=== PATIENT | female | born 1990 | race African-American/Black ===

== ENCOUNTER 2017-06-16 17:23 | Emergency (ER) | payer MEDICAID ==
[~2017-06-16] VITALS: Ht 160 cm; Wt 77.0 kg
[2017-06-16 17:25] VITALS: BP 143/87
== END 2017-06-16 20:00 | disposition left against medical advice (07) ==
LOC: ER 17:32
DX: R10.9 Unspecified abdominal pain (principal); Z53.21 Procedure and treatment not carried out due to patient leaving prior to being seen by health care provider

== ENCOUNTER 2022-06-29 11:30 | Inpatient (IN) | payer MEDICAID, OTHER ==
[~2022-06-29] VITALS: Ht 162.6 cm; Wt 126.1 kg
[2022-06-29 13:12] LABS: HEMATOCRIT. 31.8 % (36.0-48.0); HEMOGLOBIN. 10.3 g/dL (12.0-16.0); MEAN CORPUSCULAR VOLUME 83.4 fL (81.0-99.0); MEAN PLATELET VOLUME 9.8 fl (7.4-10.4); PLATELET 222 x1000/uL (130-400); RED BLOOD CELL COUNT 3.82 mill/uL (4.2-5.4)
[2022-06-29 13:23] LABS: CLARITY URINE TURBID (CLEAR); COLOR URINE YELLOW (YELLOW); KETONES URINE NEGATIVE (NEGATIVE); LEUKOCYTE ESTERASE URINE 3+ (NEGATIVE); NITRITE URINE NEGATIVE (NEGATIVE); OCCULT BLOOD URINE 2+ (NEGATIVE); PH URINE 5.5 (4.5-8.0); PROTEIN URINE 1+ (NEGATIVE); SPECIFIC GRAVITY URINE 1.011 (1.005-1.030)
[2022-06-29 13:26] LABS: CHLORIDE 96 mEq/L (98-107)
[2022-06-29 13:37] LABS: ETHANOL BLOOD < 10 mg/dL
[2022-06-29 13:48] LABS: *AMPHETAMINES SCREEN URINE NEGATIVE (NEGATIVE); *BARBITURATES SCREEN URINE NEGATIVE (NEGATIVE); *BENZODIAZEPINES SCREEN URINE NEGATIVE (NEGATIVE); *COCAINE SCREEN URINE NEGATIVE (NEGATIVE); CANNABINOID URINE SCREEN NEGATIVE (NEGATIVE); METHADONE URINE SCREEN NEGATIVE (NEGATIVE); PHENCYCLIDINE URINE SCREEN NEGATIVE (NEGATIVE)
[2022-06-29 13:50] LABS: OPIATES URINE SCREEN PRESUMTIVE POSITIVE (NEGATIVE)
[2022-06-29 13:55] LABS: HCG SCREEN POSITIVE
[2022-06-29 14:12] LABS: NUCLEATED RED BLOOD CELLS 9 /100 WBC
[2022-06-29 14:13] LABS: PLATELET ESTIMATE NORMAL
[2022-06-29] MEDS ORDERED: ACETAMINOPHEN 325MG TABLET PO ONE (14:15)
[2022-06-29] MEDS ORDERED: PIPERACILLIN/TAZ 3.375G PREMIX 50 ML IV ONE (15:00)
[2022-06-29] MEDS ORDERED: VANCOMYCIN 1G PREMIX 200 ML IV ONE (15:00)
[2022-06-29] MEDS ORDERED: MORPHINE SULFATE 4 MG/ML CPJ (NOT FOR IM USE) IV NR (17:15)
[2022-06-29] MEDS ORDERED: PIPERACILLIN/TAZ 3.375G PREMIX 50 ML IV STA (22:55)
[2022-06-29] MEDS ORDERED: VANCOMYCIN 1G PREMIX 200 ML IV STA (22:55)
[2022-06-29] MEDS ORDERED: AZITHROMYCIN 500 MG TABLET PO NR (23:15)
[2022-06-29] MEDS ORDERED: LACTOBACILLUS GG CAPSULE PO SCH (23:15)
[2022-06-30] MEDS ORDERED: OXYTOCIN 30 UNITS/500ML NS PMX 500 ML IV SCH ×2 (00:15→07:00)
[2022-06-30] MEDS ORDERED: LACTATED RINGERS 1,000 ML IV SCH (00:15)
[2022-06-30] MEDS ORDERED: MISOPROSTOL 100MCG TABLET VG SCH (00:15)
[2022-06-30] MEDS ORDERED: HYDRALAZINE 20MG/ML VIAL IV PRN ×3 (00:30)
[2022-06-30] MEDS: BUTORPHANOL TARTRATE 2 MG/ML VIAL IV PRN ×2 (01:36→05:20)
[2022-06-30 03:08] LABS: CHLORIDE 96 mEq/L (98-107)
[2022-06-30] MEDS ORDERED: LABETALOL HCL 5MG/ML VIAL 20ML IV PRN ×3 (03:45)
[2022-06-30 03:58] LABS: BASOPHILS % 0.1 % (0.0-2.0); EOSINOPHILS % 7.5 % (0.0-5.0); HEMATOCRIT. 30.4 % (36.0-48.0); LYMPHOCYTES % 11.7 % (20.0-50.0); MEAN CORPUSCULAR HEMOGLOBIN 27.4 pg (28.0-32.0); MEAN CORPUSCULAR VOLUME 83.6 fL (81.0-99.0); MEAN PLATELET VOLUME 10.2 fl (7.4-10.4); MONOCYTES % 7.1 % (2.0-8.0); NEUTROPHILS % 73.6 % (40.0-76.0); PLATELET 180 x1000/uL (130-400); RED BLOOD CELL COUNT 3.64 mill/uL (4.2-5.4); RED CELL DISTRIBUTION WIDTH 16.2 % (11.6-14.6)
[2022-06-30 05:59] LABS: D-DIMER 19.07 mg/L FEU (<0.50); PARTIAL THROMBOPLASTIN TIME 33.8 sec (23.4-31.0); PROTHROMBIN TIME 10.4 sec (9.6-11.0)
[2022-06-30] MEDS ORDERED: RHO(D) IMMUNE GLOBULIN 300 MCG/SYR IM PRN (07:00)
[2022-06-30] MEDS ORDERED: IBUPROFEN 400MG TABLET PO PRN (07:00)
[2022-06-30] MEDS ORDERED: DIPHENHYDRAMINE 25MG CAPSULE PO PRN (07:00)
[2022-06-30] MEDS ORDERED: BENZOCAINE/LANOLIN/ALOE VERA SPRAY TOP PRN (07:00)
[2022-06-30] MEDS ORDERED: BISACODYL 10MG SUPP PR PRN (07:00)
[2022-06-30] MEDS ORDERED: IBUPROFEN 800MG TABLET PO PRN (07:00)
[2022-06-30] MEDS ORDERED: HEMORRHOIDAL SUPP PR PRN (07:00)
[2022-06-30] MEDS ORDERED: GLYCERIN/WITCH HAZEL LEAF MEDICATED PAD TOP PRN (07:00)
[2022-06-30] MEDS ORDERED: LANOLIN OINT 7GM TUBE TOP PRN (07:00)
[2022-06-30] MEDS: SIMETHICONE 80MG TABLET CHEW PO SCH ×5 (09:00→21:14)
[2022-06-30] MEDS: MAGNESIUM/ALUMINUM HYDROXIDE/SIMETHICONE 30ML UDC PO SCH ×4 (09:00→21:13)
[2022-06-30] MEDS: PRENATAL VIT/FE FUMARATE/FA TABLET PO SCH (09:00)
[2022-06-30] MEDS ORDERED: HYDRALAZINE 20MG/ML VIAL IV SCH (09:30)
[2022-06-30] MEDS: SODIUM CHLORIDE 0.9% 1,000 ML IV SCH (10:45)
[2022-06-30 11:11] LABS: BG BASE EXCESS -7.5 mmol/L (-2.0-2.0); BG CARBOXYHEMOGLOBIN 0.3 % (0.5-1.5); BG DEOXYHEMOGLOBIN 5.2 % (0.0-5.0); BG FRACTION INSPIRED OXYGEN 21; BG HCO3 ACT 17.5 mmol/L (22.0-26.0); BG METHEMOGLOBIN 0.6 % (0.0-1.5); BG OXYGEN SATURATION 94.8 % (92.0-98.5); BG OXYHEMOGLOBIN 93.9 % (94.0-97.0); BG PCO2 33.7 mmHg (35.0-45.0); BG PH 7.334 (7.350-7.450); BG PO2 83.9 mmHg (75.0-100.0); BG SAMPLE SITE LEFT BRACHIAL; BG TOTAL HEMOGLOBIN 10.4 g/dL (12.0-18.0); BG VENT MODE ROOM AIR
[2022-06-30 12:00] VITALS: BP 146/71
[2022-06-30] MEDS: PIPERACILLIN/TAZOBACTAM 3.375 G in DEXTROSE 5% WATER 50 ML IV SCH ×2 (14:30→21:13)
[2022-06-30] MEDS: HYDRALAZINE HCL 25MG TABLET PO SCH ×2 (14:30→21:15)
[2022-06-30] MEDS ORDERED: ALBUMIN HUMAN 12.5GM/50ML (25%) IV NR (15:00)
[2022-06-30 15:49] VITALS: BP 121/65
[2022-06-30 16:05] VITALS: BP 137/78
[2022-06-30 17:12] LABS: CLARITY URINE TURBID (CLEAR); COLOR URINE DARK YELLOW (YELLOW); KETONES URINE NEGATIVE (NEGATIVE); LEUKOCYTE ESTERASE URINE 3+ (NEGATIVE); NITRITE URINE NEGATIVE (NEGATIVE); OCCULT BLOOD URINE 3+ (NEGATIVE); PH URINE 5.5 (4.5-8.0); PROTEIN URINE 2+ (NEGATIVE)
[2022-06-30 20:29] VITALS: BP 137/67
[2022-06-30] MEDS: DOCUSATE SODIUM 100MG CAPSULE PO SCH (21:15)
[2022-07-01] VITALS (7 sets, daily range): BP systolic 116–192; BP diastolic 59–105
[2022-07-01] MEDS: PIPERACILLIN/TAZOBACTAM 3.375 G in DEXTROSE 5% WATER 50 ML IV SCH ×2 (05:20→15:47)
[2022-07-01] MEDS: HYDRALAZINE HCL 25MG TABLET PO SCH ×3 (05:33→21:47)
[2022-07-01] MEDS: ACETAMINOPHEN WITH CODEINE 300/30MG TABLET PO PRN (05:34)
[2022-07-01 06:30] LABS: HEMATOCRIT. 24.1 % (36.0-48.0); MEAN CORPUSCULAR HEMOGLOBIN 27.1 pg (28.0-32.0); MEAN CORPUSCULAR VOLUME 81.8 fL (81.0-99.0); MEAN PLATELET VOLUME 9.9 fl (7.4-10.4); PLATELET 141 x1000/uL (130-400); RED BLOOD CELL COUNT 2.94 mill/uL (4.2-5.4)
[2022-07-01 06:46] LABS: CHLORIDE 103 mEq/L (98-107)
[2022-07-01 06:56] LABS: CREATINE KINASE 208 IU/L (26-192); PHOSPHORUS 6.3 mg/dL (2.5-4.9)
[2022-07-01] MEDS: SODIUM CHLORIDE 0.9% 1,000 ML IV SCH ×2 (07:30→15:48)
[2022-07-01] MEDS: MAGNESIUM/ALUMINUM HYDROXIDE/SIMETHICONE 30ML UDC PO SCH ×4 (08:17→21:00)
[2022-07-01] MEDS: FERROUS SULFATE 325MG TABLET PO SCH ×3 (08:17→18:29)
[2022-07-01] MEDS ORDERED: ALBUMIN HUMAN 25GM/100ML (25%) IV NR (10:30)
[2022-07-01] MEDS: SIMETHICONE 80MG TABLET CHEW PO SCH ×4 (13:10→21:00)
[2022-07-01] MEDS: PRENATAL VIT/FE FUMARATE/FA TABLET PO SCH (13:19)
[2022-07-01 14:29] LABS: NUCLEATED RED BLOOD CELLS 3 /100 WBC
[2022-07-01 14:30] LABS: PLATELET ESTIMATE NORMAL
[2022-07-01] MEDS ORDERED: CEFTRIAXONE 2 G PREMIX 50 ML IV SCH (14:30)
[2022-07-01] MEDS ORDERED: VANCOMYCIN 1G PREMIX 200 ML IV NR (16:00)
[2022-07-01] MEDS ORDERED: NALOXONE HCL 0.4MG/ML VIAL IV PRN (17:30)
[2022-07-01] MEDS ORDERED: MORPHINE SULFATE 2 MG/ML CPJ (NOT FOR IM USE) IV PRN (17:30)
[2022-07-01] MEDS: CLONIDINE 0.1MG TABLET PO PRN (17:52)
[2022-07-01] MEDS: CEFTRIAXONE 2 G in DEXTROSE 5% WATER 50 ML IV SCH (20:06)
[2022-07-01] MEDS: DOCUSATE SODIUM 100MG CAPSULE PO SCH (21:00)
[2022-07-01] MEDS: METRONIDAZOLE 500MG TABLET PO SCH (21:47)
[2022-07-02] VITALS: BP 155/66
[2022-07-02] MEDS: SODIUM CHLORIDE 0.9% 1,000 ML IV SCH ×2 (01:32→12:27)
[2022-07-02 04:30] VITALS: BP 180/100
[2022-07-02] MEDS: METRONIDAZOLE 500MG TABLET PO SCH (05:09)
[2022-07-02] MEDS: CLONIDINE 0.1MG TABLET PO PRN ×3 (05:10→20:37)
[2022-07-02] MEDS: HYDRALAZINE HCL 25MG TABLET PO SCH (05:10)
[2022-07-02] MEDS: ACETAMINOPHEN WITH CODEINE 300/30MG TABLET PO PRN (05:16)
[2022-07-02 07:31] LABS: CHLORIDE 108 mEq/L (98-107)
[2022-07-02 07:36] LABS: HEMATOCRIT. 27.3 % (36.0-48.0); HEMOGLOBIN. 8.9 g/dL (12.0-16.0); MEAN CORPUSCULAR HEMOGLOBIN 27.1 pg (28.0-32.0); MEAN CORPUSCULAR VOLUME 82.8 fL (81.0-99.0); MEAN PLATELET VOLUME 9.2 fl (7.4-10.4); PLATELET 135 x1000/uL (130-400); RED BLOOD CELL COUNT 3.29 mill/uL (4.2-5.4); RED CELL DISTRIBUTION WIDTH 16.4 % (11.6-14.6)
[2022-07-02] MEDS: MAGNESIUM/ALUMINUM HYDROXIDE/SIMETHICONE 30ML UDC PO SCH ×4 (07:40→20:37)
[2022-07-02] MEDS: FERROUS SULFATE 325MG TABLET PO SCH ×3 (07:40→17:40)
[2022-07-02 07:44] LABS: PHOSPHORUS 4.2 mg/dL (2.5-4.9)
[2022-07-02] MEDS: SIMETHICONE 80MG TABLET CHEW PO SCH ×4 (08:10→20:37)
[2022-07-02] MEDS: PRENATAL VIT/FE FUMARATE/FA TABLET PO SCH (09:59)
[2022-07-02 12:00] VITALS: BP 123/63
[2022-07-02] MEDS: AMLODIPINE 10MG TABLET PO SCH (12:27)
[2022-07-02] MEDS: HYDRALAZINE HCL 50MG TABLET PO SCH ×2 (14:20→20:37)
[2022-07-02] MEDS ORDERED: CLINDAMYCIN 600 MG in DEXTROSE 5% WATER 50 ML IV SCH (14:30)
[2022-07-02] MEDS: CEFTRIAXONE 2 G in DEXTROSE 5% WATER 50 ML IV SCH (15:45)
[2022-07-02 16:00] VITALS: BP 149/75
[2022-07-02] MEDS: CLINDAMYCIN 600MG PREMIX 50 ML IV SCH ×2 (18:54→23:10)
[2022-07-02 20:00] VITALS: BP 179/96
[2022-07-02] MEDS: DOCUSATE SODIUM 100MG CAPSULE PO SCH (20:37)
[2022-07-02] MEDS ORDERED: VANCOMYCIN 750MG PREMIX 150 ML IV NR (21:00)
[2022-07-02] MEDS ORDERED: VANCOMYCIN 1G PREMIX 200 ML IV NR (21:00)
[2022-07-03] VITALS: BP 166/82
[2022-07-03] MEDS: SODIUM CHLORIDE 0.9% 1,000 ML IV SCH (02:09)
[2022-07-03 04:00] VITALS: BP 148/78
[2022-07-03] MEDS: HYDRALAZINE HCL 50MG TABLET PO SCH ×3 (05:37→22:03)
[2022-07-03 08:00] VITALS: BP 177/83
[2022-07-03] MEDS: FERROUS SULFATE 325MG TABLET PO SCH ×3 (08:55→17:15)
[2022-07-03] MEDS: AMLODIPINE 10MG TABLET PO SCH (08:55)
[2022-07-03] MEDS: MAGNESIUM/ALUMINUM HYDROXIDE/SIMETHICONE 30ML UDC PO SCH ×4 (08:55→21:00)
[2022-07-03] MEDS: PRENATAL VIT/FE FUMARATE/FA TABLET PO SCH (08:55)
[2022-07-03] MEDS: CLINDAMYCIN 600MG PREMIX 50 ML IV SCH ×3 (08:56→23:15)
[2022-07-03] MEDS: SIMETHICONE 80MG TABLET CHEW PO SCH ×4 (08:56→22:02)
[2022-07-03 12:00] VITALS: BP 157/74
[2022-07-03 14:12] LABS: NUCLEATED RED BLOOD CELLS 3 /100 WBC
[2022-07-03 14:13] LABS: PLATELET ESTIMATE NORMAL
[2022-07-03] MEDS: SPIRONOLACTONE 25MG TABLET PO SCH (15:15)
[2022-07-03 16:00] VITALS: BP 168/82
[2022-07-03 17:02] LABS: HEMATOCRIT. 30.1 % (36.0-48.0); HEMOGLOBIN. 9.8 g/dL (12.0-16.0); MEAN CORPUSCULAR HEMOGLOBIN 26.8 pg (28.0-32.0); MEAN CORPUSCULAR VOLUME 82.2 fL (81.0-99.0); MEAN PLATELET VOLUME 8.9 fl (7.4-10.4); PLATELET 130 x1000/uL (130-400); RED BLOOD CELL COUNT 3.66 mill/uL (4.2-5.4); RED CELL DISTRIBUTION WIDTH 16.4 % (11.6-14.6)
[2022-07-03] MEDS: CLONIDINE 0.1MG TABLET PO PRN ×2 (17:12→17:15)
[2022-07-03] MEDS: CEFTRIAXONE 2 G in DEXTROSE 5% WATER 50 ML IV SCH (17:13)
[2022-07-03 17:18] LABS: PHOSPHORUS 3.5 mg/dL (2.5-4.9)
[2022-07-03 18:43] LABS: PLATELET ESTIMATE NORMAL
[2022-07-03] MEDS: DOCUSATE SODIUM 100MG CAPSULE PO SCH (21:00)
[2022-07-03 21:30] VITALS: BP 162/81
[2022-07-04] VITALS: BP 144/85
[2022-07-04 04:00] VITALS: BP 140/77
[2022-07-04] MEDS: HYDRALAZINE HCL 50MG TABLET PO SCH ×3 (05:28→21:32)
[2022-07-04 06:53] LABS: HEMATOCRIT. 29.4 % (36.0-48.0); HEMOGLOBIN. 9.6 g/dL (12.0-16.0); MEAN CORPUSCULAR HEMOGLOBIN 26.7 pg (28.0-32.0); MEAN CORPUSCULAR VOLUME 82.1 fL (81.0-99.0); MEAN PLATELET VOLUME 9.6 fl (7.4-10.4); PLATELET 148 x1000/uL (130-400); RED BLOOD CELL COUNT 3.58 mill/uL (4.2-5.4); RED CELL DISTRIBUTION WIDTH 16.4 % (11.6-14.6)
[2022-07-04 08:00] VITALS: BP 142/73
[2022-07-04] MEDS: MAGNESIUM/ALUMINUM HYDROXIDE/SIMETHICONE 30ML UDC PO SCH ×4 (09:18→21:32)
[2022-07-04] MEDS: PRENATAL VIT/FE FUMARATE/FA TABLET PO SCH (09:18)
[2022-07-04] MEDS: FERROUS SULFATE 325MG TABLET PO SCH ×3 (09:18→17:26)
[2022-07-04] MEDS: SIMETHICONE 80MG TABLET CHEW PO SCH ×4 (09:20→21:33)
[2022-07-04] MEDS: SPIRONOLACTONE 25MG TABLET PO SCH (09:20)
[2022-07-04] MEDS: CLINDAMYCIN 600MG PREMIX 50 ML IV SCH ×2 (09:21→16:33)
[2022-07-04] MEDS: AMLODIPINE 10MG TABLET PO SCH (09:21)
[2022-07-04 12:00] VITALS: BP 135/68
[2022-07-04 16:00] VITALS: BP 149/77
[2022-07-04] MEDS: CEFTRIAXONE 2 G in DEXTROSE 5% WATER 50 ML IV SCH (16:33)
[2022-07-04 20:00] VITALS: BP 104/69
[2022-07-04] MEDS: DOCUSATE SODIUM 100MG CAPSULE PO SCH (21:00)
[2022-07-05] VITALS: BP 125/66
[2022-07-05] MEDS: CLINDAMYCIN 600MG PREMIX 50 ML IV SCH ×4 (00:24→23:33)
[2022-07-05 04:00] VITALS: BP 132/66
[2022-07-05] MEDS: HYDRALAZINE HCL 50MG TABLET PO SCH ×3 (06:00→21:19)
[2022-07-05 06:31] LABS: HEMATOCRIT. 29.8 % (36.0-48.0); HEMOGLOBIN. 9.9 g/dL (12.0-16.0); MEAN CORPUSCULAR HEMOGLOBIN 27.6 pg (28.0-32.0); MEAN CORPUSCULAR VOLUME 82.8 fL (81.0-99.0); MEAN PLATELET VOLUME 9.3 fl (7.4-10.4); PLATELET 207 x1000/uL (130-400); RED BLOOD CELL COUNT 3.59 mill/uL (4.2-5.4); RED CELL DISTRIBUTION WIDTH 16.5 % (11.6-14.6)
[2022-07-05 06:38] LABS: CHLORIDE 103 mEq/L (98-107)
[2022-07-05 08:00] VITALS: BP 139/79
[2022-07-05] MEDS: FERROUS SULFATE 325MG TABLET PO SCH ×3 (09:49→17:41)
[2022-07-05] MEDS: MAGNESIUM/ALUMINUM HYDROXIDE/SIMETHICONE 30ML UDC PO SCH ×4 (09:49→21:19)
[2022-07-05] MEDS: SIMETHICONE 80MG TABLET CHEW PO SCH ×4 (09:49→21:00)
[2022-07-05] MEDS: PRENATAL VIT/FE FUMARATE/FA TABLET PO SCH (09:50)
[2022-07-05] MEDS: AMLODIPINE 10MG TABLET PO SCH (09:50)
[2022-07-05] MEDS: SPIRONOLACTONE 25MG TABLET PO SCH (09:50)
[2022-07-05 12:00] VITALS: BP 132/67
[2022-07-05] MEDS ORDERED: MAGNESIUM 2 G PREMIX 50 ML IV NR (12:00)
[2022-07-05 13:50] LABS: NUCLEATED RED BLOOD CELLS 1 /100 WBC; PLATELET ESTIMATE NORMAL
[2022-07-05 15:39] LABS: ATYPICAL LYMPHOCYTES 1; PLATELET ESTIMATE NORMAL
[2022-07-05 16:00] VITALS: BP 131/74
[2022-07-05] MEDS: CEFTRIAXONE 2 G in DEXTROSE 5% WATER 50 ML IV SCH (17:02)
[2022-07-05 20:00] VITALS: BP 137/75
[2022-07-05] MEDS: DOCUSATE SODIUM 100MG CAPSULE PO SCH (21:19)
[2022-07-06] VITALS: BP 128/60
[2022-07-06 04:00] VITALS: BP 109/58
[2022-07-06] MEDS: HYDRALAZINE HCL 50MG TABLET PO SCH ×3 (05:14→21:11)
[2022-07-06 06:25] LABS: CHLORIDE 102 mEq/L (98-107)
[2022-07-06 06:33] LABS: MEAN CORPUSCULAR HEMOGLOBIN 27.7 pg (28.0-32.0); MEAN CORPUSCULAR VOLUME 83.4 fL (81.0-99.0); MEAN PLATELET VOLUME 9.1 fl (7.4-10.4); PLATELET 257 x1000/uL (130-400); RED CELL DISTRIBUTION WIDTH 16.3 % (11.6-14.6)
[2022-07-06 06:34] LABS: PHOSPHORUS 4.7 mg/dL (2.5-4.9)
[2022-07-06 08:06] VITALS: BP 122/60
[2022-07-06] MEDS: CLINDAMYCIN 600MG PREMIX 50 ML IV SCH ×2 (09:36→18:38)
[2022-07-06] MEDS: MAGNESIUM/ALUMINUM HYDROXIDE/SIMETHICONE 30ML UDC PO SCH ×4 (09:36→21:11)
[2022-07-06] MEDS: FERROUS SULFATE 325MG TABLET PO SCH ×3 (09:37→18:38)
[2022-07-06] MEDS: SPIRONOLACTONE 25MG TABLET PO SCH (09:37)
[2022-07-06] MEDS: PRENATAL VIT/FE FUMARATE/FA TABLET PO SCH (09:37)
[2022-07-06] MEDS: SIMETHICONE 80MG TABLET CHEW PO SCH ×4 (09:37→21:11)
[2022-07-06] MEDS: AMLODIPINE 10MG TABLET PO SCH (09:37)
[2022-07-06 12:00] VITALS: BP 136/70
[2022-07-06] MEDS: CEFTRIAXONE 2 G in DEXTROSE 5% WATER 50 ML IV SCH (15:50)
[2022-07-06 16:00] VITALS: BP 132/69
[2022-07-06 20:00] VITALS: BP_SYST 120; BP_SYST 126; BP_DIAS 60; BP_DIAS 63
[2022-07-06] MEDS: DOCUSATE SODIUM 100MG CAPSULE PO SCH (21:10)
[2022-07-06 21:31] LABS: PLATELET ESTIMATE NORMAL
[2022-07-07] VITALS: BP_SYST 112; BP_SYST 140; BP_DIAS 60; BP_DIAS 80
[2022-07-07] MEDS: CLINDAMYCIN 600MG PREMIX 50 ML IV SCH ×2 (00:54→08:46)
[2022-07-07 04:00] VITALS: BP 112/61
[2022-07-07] MEDS: HYDRALAZINE HCL 50MG TABLET PO SCH ×3 (06:23→21:36)
[2022-07-07 07:44] LABS: HEMATOCRIT. 29.6 % (36.0-48.0); HEMOGLOBIN. 9.5 g/dL (12.0-16.0); MEAN CORPUSCULAR HEMOGLOBIN 27.5 pg (28.0-32.0); MEAN CORPUSCULAR VOLUME 85.1 fL (81.0-99.0); MEAN PLATELET VOLUME 8.7 fl (7.4-10.4); PLATELET 319 x1000/uL (130-400); RED BLOOD CELL COUNT 3.47 mill/uL (4.2-5.4); RED CELL DISTRIBUTION WIDTH 16.7 % (11.6-14.6)
[2022-07-07 07:45] LABS: CHLORIDE 101 mEq/L (98-107)
[2022-07-07 07:50] LABS: PHOSPHORUS 4.9 mg/dL (2.5-4.9)
[2022-07-07 08:00] VITALS: BP 135/60
[2022-07-07] MEDS: SIMETHICONE 80MG TABLET CHEW PO SCH ×4 (08:45→21:37)
[2022-07-07] MEDS: PRENATAL VIT/FE FUMARATE/FA TABLET PO SCH (08:45)
[2022-07-07] MEDS: SPIRONOLACTONE 25MG TABLET PO SCH (08:46)
[2022-07-07] MEDS: AMLODIPINE 10MG TABLET PO SCH (08:46)
[2022-07-07] MEDS: FERROUS SULFATE 325MG TABLET PO SCH ×3 (08:46→17:43)
[2022-07-07] MEDS: MAGNESIUM/ALUMINUM HYDROXIDE/SIMETHICONE 30ML UDC PO SCH ×4 (08:47→21:38)
[2022-07-07 12:00] VITALS: BP 127/62
[2022-07-07 13:16] LABS: NUCLEATED RED BLOOD CELLS 1 /100 WBC
[2022-07-07 13:18] LABS: PLATELET ESTIMATE NORMAL
[2022-07-07] MEDS ORDERED: SPIR25TA PO (14:28)
[2022-07-07] MEDS ORDERED: AMLO10TA80 PO (14:28)
[2022-07-07] MEDS ORDERED: HYDR-4135 PO (14:28)
[2022-07-07] MEDS ORDERED: FERR-63 PO (14:28)
[2022-07-07 16:00] VITALS: BP 122/60
[2022-07-07] MEDS ORDERED: CEFTRIAXONE 1,000 MG in DEXTROSE 5% WATER 50 ML IV SCH (16:00)
[2022-07-07 20:00] VITALS: BP 109/49
[2022-07-07] MEDS: DOCUSATE SODIUM 100MG CAPSULE PO SCH (21:35)
[2022-07-08] VITALS: BP 144/86
[2022-07-08 04:00] VITALS: BP 126/63
[2022-07-08] MEDS: HYDRALAZINE HCL 50MG TABLET PO SCH ×2 (05:05→13:32)
[2022-07-08 07:02] LABS: CHLORIDE 102 mEq/L (98-107)
[2022-07-08 07:03] LABS: HEMATOCRIT. 30.8 % (36.0-48.0); MEAN CORPUSCULAR HEMOGLOBIN 27.4 pg (28.0-32.0); MEAN CORPUSCULAR VOLUME 84.4 fL (81.0-99.0); MEAN PLATELET VOLUME 8.4 fl (7.4-10.4); PLATELET 376 x1000/uL (130-400); RED BLOOD CELL COUNT 3.65 mill/uL (4.2-5.4); RED CELL DISTRIBUTION WIDTH 17.3 % (11.6-14.6)
[2022-07-08 07:15] LABS: PHOSPHORUS 4.1 mg/dL (2.5-4.9)
[2022-07-08 08:00] VITALS: BP 129/52
[2022-07-08] MEDS: MAGNESIUM/ALUMINUM HYDROXIDE/SIMETHICONE 30ML UDC PO SCH ×2 (08:21→13:32)
[2022-07-08] MEDS: PRENATAL VIT/FE FUMARATE/FA TABLET PO SCH (08:22)
[2022-07-08] MEDS: FERROUS SULFATE 325MG TABLET PO SCH ×2 (08:22→13:31)
[2022-07-08] MEDS: SIMETHICONE 80MG TABLET CHEW PO SCH ×2 (08:22→13:31)
[2022-07-08] MEDS: AMLODIPINE 10MG TABLET PO SCH (08:22)
[2022-07-08] MEDS: SPIRONOLACTONE 25MG TABLET PO SCH (08:22)
[2022-07-08] MEDS ORDERED: SILV20CR13 TP (11:29)
[2022-07-08 12:00] VITALS: BP 154/71
[2022-07-08 13:29] LABS: NUCLEATED RED BLOOD CELLS 1 /100 WBC; PLATELET ESTIMATE NORMAL
[2022-07-08 14:56] VITALS: BP 128/61
== END 2022-07-08 15:20 | disposition home or self-care (01) | DRG 560 ==
LOC: ER 14:14 → 8 EST LDRP 18:32 → OBSVTOIN 18:32 → 8 EST LDRP 18:55 → EDBEDREQ 19:33 → 8 EST LDRP 21:44 → 6EST 06-30 10:00 → 8WST 07-01 04:04
PROVIDERS: ADMIT Obstetrics & Gynecology; ATTEND Obstetrics & Gynecology
PROC: 10E0XZZ Delivery of Products of Conception, External Approach (ICD-10-PCS; principal; 2022-06-30)
DX: O75.3 Other infection during labor (principal); Z37.1 Single stillbirth; A41.51 Sepsis due to Escherichia coli [E. coli]; N17.0 Acute kidney failure with tubular necrosis; E43 Unspecified severe protein-calorie malnutrition; L03.115 Cellulitis of right lower limb; E87.1 Hypo-osmolality and hyponatremia; E87.20 Acidosis, unspecified; O36.4XX0 Maternal care for intrauterine death, not applicable or unspecified; O23.43 Unspecified infection of urinary tract in pregnancy, third trimester; R65.20 Severe sepsis without septic shock; L03.116 Cellulitis of left lower limb; E88.09 Other disorders of plasma-protein metabolism, not elsewhere classified; O99.892 Other specified diseases and conditions complicating childbirth; Z3A.34 34 weeks gestation of pregnancy; O16.4 Unspecified maternal hypertension, complicating childbirth; O99.72 Diseases of the skin and subcutaneous tissue complicating childbirth; O99.02 Anemia complicating childbirth; O99.42 Diseases of the circulatory system complicating childbirth; O99.214 Obesity complicating childbirth; O99.284 Endocrine, nutritional and metabolic diseases complicating childbirth; L97.929 Non-pressure chronic ulcer of unspecified part of left lower leg with unspecified severity; E66.01 Morbid (severe) obesity due to excess calories; I50.9 Heart failure, unspecified; I11.0 Hypertensive heart disease with heart failure; Z79.899 Other long term (current) drug therapy
CPT/HCPCS: 36415; 36600; 71045; 74176; 76770; 76815; 80048; 80053; 80202; 80305; 80320; 81003; 82375; 82550; 82570; 82805; 83605; 83735; 83880; 84100; 84145; 84156; 84484; 84550; 84702; 84703; 85025; 85379; 85384; 87077; 87186; 88307; 93005; 93306; 99281; 99291; G0378; J0360; J0595; J0696; J2270; J2543; J3370; J3475; J3490; J7030; J7060; P9047; A4315; G0480; J2590

== ENCOUNTER 2024-04-22 06:41 | Inpatient (IN) | payer SELFPAY ==
[~2024-04-22] VITALS: Ht 165.1 cm; Wt 117.5 kg
[~2024-04-22 06:41] MED LIST: AMLO10TA80 PO; FERR-63 PO; HYDR50TA39 PO; SILV20CR13 TP; SPIR25TA PO
[2024-04-22] MEDS: ONDANSETRON 4MG ODT PO ONE (07:00)
[2024-04-22] MEDS: ONDANSETRON HCL 4MG/2ML INJ IV ONE (08:50)
[2024-04-22 10:05] LABS: CHLORIDE 106 mEq/L (98-107); POTASSIUM 4.2 mEq/L (3.5-5.1); SODIUM 141 mEq/L (136-145)
[2024-04-22 10:06] LABS: CALCIUM 9.5 mg/dL (8.7-10.4); CARBON DIOXIDE 29 mEq/L (21-32)
[2024-04-22 10:09] LABS: HCG SCREEN NEGATIVE
[2024-04-22 10:11] LABS: CREATININE 1.2 mg/dL (0.6-1.0); GLUCOSE 114 mg/dL (70-105); UREA NITROGEN BLOOD 12 mg/dL (9-23)
[2024-04-22 10:13] LABS: ACETAMINOPHEN < 2 ug/mL (10-30); ALANINE AMINOTRANSFERASE 17 IU/L (10-49); ALBUMIN 4.2 g/dL (3.2-4.8); ASPARTATE AMINOTRANSFERASE 31 IU/L (<34); BILIRUBIN TOTAL 0.2 mg/dL (0.1-1.0); PROTEIN TOTAL 7.8 g/dL (6.0-8.3)
[2024-04-22 10:14] LABS: BASOPHILS % 0.4 % (0.0-2.0); EOSINOPHILS % 2.9 % (0.0-5.0); HEMOGLOBIN. 12.7 g/dL (12.0-16.0); LYMPHOCYTES % 24.4 % (20.0-50.0); MEAN CORPUSCULAR HEMOGLOBIN 30.1 pg (28.0-32.0); MEAN CORPUSCULAR HGB CONC 32.6 g/dL (31.0-37.0); MEAN CORPUSCULAR VOLUME 92.3 fL (81.0-99.0); MEAN PLATELET VOLUME 9.5 fl (7.4-10.4); MONOCYTES % 6.3 % (2.0-8.0); PLATELET 317 x1000/uL (130-400); RED BLOOD CELL COUNT 4.23 mill/uL (4.2-5.4); RED CELL DISTRIBUTION WIDTH 14.5 % (11.6-14.6); WHITE BLOOD COUNT 10.7 x1000/uL (4.5-11.0)
[2024-04-22 10:51] LABS: BILIRUBIN DIRECT < 0.1 mg/dL (<=3.0); ETHANOL BLOOD < 10 mg/dL (<10)
[2024-04-22] MEDS: FUROSEMIDE 40MG/4ML VIAL IVP ONE (12:13)
[2024-04-22 13:03] LABS: TROPONIN I HIGH SENSITIVITY 13 ng/L (3.0-34)
[2024-04-22 14:03] LABS: IRON 15 ug/dL (50-170)
[2024-04-22 14:04] LABS: TRIGLYCERIDE 62 mg/dL (0-150)
[2024-04-22 14:06] LABS: CHOLESTEROL 137 mg/dL (<200); HDL CHOLESTEROL 50 mg/dL (>65); TOTAL IRON BINDING CAPACITY 375 ug/dl (250-425)
[2024-04-22 14:09] LABS: T4 FREE 1.18 ng/dL (0.89-1.76)
[2024-04-22 14:10] LABS: FOLIC ACID (FOLATE) SERUM 18.92 ng/mL (>5.38); THYROID STIMULATING HORMONE 0.47 uIU/mL (0.55-4.78); VITAMIN B12 SERUM 435 pg/mL (211-911)
[2024-04-22 14:20] LABS: LDL CHOLESTEROL 80 mg/dL (5-100)
[2024-04-22 14:53] LABS: BG BASE EXCESS 0.2 mmol/L (-2.0-3.0); BG CARBOXYHEMOGLOBIN 0.2 % (0.5-1.5); BG DEOXYHEMOGLOBIN 3.5 % (0.0-5.0); BG FRACTION INSPIRED OXYGEN 32; BG HCO3 ACT 26.7 mmol/L (21.0-28.0); BG METHEMOGLOBIN 0.3 % (0.5-1.5); BG OXYGEN SATURATION 96.5 % (94.0-98.0); BG PCO2 50.7 mmHg (32.0-45.0); BG PH 7.339 (7.350-7.450); BG PO2 91.5 mmHg (83.0-108.0); BG SAMPLE SITE RIGHT RADIAL; BG TOTAL HEMOGLOBIN 13.9 g/dL (12.0-16.0); BG VENT MODE NASAL CANNULA
[2024-04-22 15:20] LABS: CLARITY URINE CLEAR (CLEAR); COLOR URINE YELLOW (YELLOW); GLUCOSE URINE NEGATIVE (NEGATIVE); KETONES URINE NEGATIVE (NEGATIVE); LEUKOCYTE ESTERASE URINE TRACE (NEGATIVE); NITRITE URINE NEGATIVE (NEGATIVE); OCCULT BLOOD URINE NEGATIVE (NEGATIVE); PROTEIN URINE NEGATIVE (NEGATIVE); SPECIFIC GRAVITY URINE 1.016 (1.005-1.030); UROBILINOGEN URINE 0.2 E.U./dL (0.2-1.0)
[2024-04-22 15:40] LABS: *AMPHETAMINES SCREEN URINE PRESUMPTIVE POSITIVE (NEGATIVE); *BARBITURATES SCREEN URINE NEGATIVE (NEGATIVE); *BENZODIAZEPINES SCREEN URINE PRESUMPTIVE POSITIVE (NEGATIVE); *COCAINE SCREEN URINE NEGATIVE (NEGATIVE); CANNABINOID URINE SCREEN PRESUMPTIVE POSITIVE (NEGATIVE); ECSTASY MDMA SCREEN URINE NEGATIVE (NEGATIVE); METHADONE URINE SCREEN NEGATIVE (NEGATIVE); OPIATES URINE SCREEN NEGATIVE (NEGATIVE); PHENCYCLIDINE URINE SCREEN NEGATIVE (NEGATIVE)
[2024-04-22 15:50] VITALS: BP 120/71; PULSE 87; RESP 14; TEMP 37.16964; O2SAT 97
[2024-04-22 16:00] VITALS: BP 120/71; PULSE 87; RESP 14; TEMP 37.1964
[2024-04-22 16:00] LABS: RBC URINE NONE SEEN /hpf (0-2); SQUAMOUS EPITHELIAL CELL URINE 1+ /lpf (RARE/1+); WBC URINE 0-2 /hpf (0-2)
[2024-04-22 16:01] LABS: BACTERIA URINE TRACE
[2024-04-22] MEDS ORDERED: NALOXONE 4 MG in SODIUM CHLORIDE 0.9% 246 ML IV ONE (16:15)
[2024-04-22] MEDS ORDERED: DOCUSATE SODIUM 100MG CAPSULE PO PRN (16:15)
[2024-04-22] MEDS ORDERED: CLONIDINE 0.1MG TABLET PO PRN (16:15)
[2024-04-22] MEDS ORDERED: IPRATROPIUM/ALBUTEROL 0.5-3(2.5)MG/3ML NEB NEB PRN (16:15)
[2024-04-22] MEDS ORDERED: ONDANSETRON HCL 4MG/2ML INJ IV PRN (16:15)
[2024-04-22] MEDS ORDERED: NITROGLYCERIN 0.4MG TABLET SL SL PRN (16:15)
[2024-04-22] MEDS ORDERED: ACETAMINOPHEN 325MG TABLET PO PRN (16:15)
[2024-04-22] MEDS ORDERED: GUAIFENESIN 200MG/10ML SUGAR FREE UDC PO PRN (16:15)
[2024-04-22] MEDS ORDERED: MAGNESIUM/ALUMINUM HYDROXIDE/SIMETHICONE 30ML UDC PO PRN (16:15)
[2024-04-22] MEDS: LACTATED RINGERS 1,000 ML IV SCH (17:04)
[2024-04-22 18:00] VITALS: BP 125/64; PULSE 79; RESP 20; O2SAT 100
[2024-04-22 20:00] VITALS: BP 133/78; PULSE 87; RESP 16; TEMP 36.72516; O2SAT 96
[2024-04-22] MEDS ORDERED: NALOXONE HCL 0.4MG/ML 1ML VIAL IV PRN (20:00)
[2024-04-22] MEDS: ENOXAPARIN 40MG/0.4ML SYR SUBCUT SCH (21:00)
[2024-04-22 22:00] VITALS: BP 121/68; PULSE 87; RESP 16
[2024-04-22] MEDS: FAMOTIDINE 20MG TABLET PO SCH (22:38)
[2024-04-22 23:31] LABS: CREATINE KINASE MB FRACTION 0.6 ng/mL (0.5-3.6)
[2024-04-23] VITALS (8 sets, daily range): BP systolic 107–129; BP diastolic 53–73; PULSE 71–93; RESP 15–20; TEMP 36.50292–37.7808; O2SAT 76–97
[2024-04-23 09:31] LABS: BASOPHILS % 0.5 % (0.0-2.0); EOSINOPHILS % 1.9 % (0.0-5.0); HEMATOCRIT. 34.3 % (36.0-48.0); HEMOGLOBIN. 11.3 g/dL (12.0-16.0); LYMPHOCYTES % 20.7 % (20.0-50.0); MEAN CORPUSCULAR HGB CONC 32.8 g/dL (31.0-37.0); MEAN CORPUSCULAR VOLUME 91.5 fL (81.0-99.0); MEAN PLATELET VOLUME 9.3 fl (7.4-10.4); MONOCYTES % 4.7 % (2.0-8.0); NEUTROPHILS % 72.2 % (40.0-76.0); PLATELET 262 x1000/uL (130-400); RED BLOOD CELL COUNT 3.75 mill/uL (4.2-5.4); RED CELL DISTRIBUTION WIDTH 14.5 % (11.6-14.6); WHITE BLOOD COUNT 14.5 x1000/uL (4.5-11.0)
[2024-04-23 09:42] LABS: CALCIUM 9.1 mg/dL (8.7-10.4); CARBON DIOXIDE 32 mEq/L (21-32); CHLORIDE 103 mEq/L (98-107); POTASSIUM 4.1 mEq/L (3.5-5.1); SODIUM 138 mEq/L (136-145)
[2024-04-23 09:44] LABS: GLUCOSE 122 mg/dL (70-105)
[2024-04-23 09:45] LABS: ALANINE AMINOTRANSFERASE 9 IU/L (10-49)
[2024-04-23 09:46] LABS: ASPARTATE AMINOTRANSFERASE 16 IU/L (<34); BILIRUBIN TOTAL 0.7 mg/dL (0.1-1.0); CREATINE KINASE 29 IU/L (34-145); PHOSPHORUS 2.4 mg/dL (2.5-4.9); UREA NITROGEN BLOOD 13 mg/dL (9-23)
[2024-04-23 09:49] LABS: CREATINE KINASE MB FRACTION < 0.5 ng/mL (0.5-3.6); TROPONIN I HIGH SENSITIVITY 5 ng/L (3.0-34)
[2024-04-23] MEDS: ENOXAPARIN 30MG/0.3ML SYR SUBCUT SCH (17:55)
[2024-04-23] MEDS: KETOROLAC 15MG/ML VIAL IV PRN (22:33)
[2024-04-24 04:00] VITALS: BP 105/62; PULSE 67; RESP 19; TEMP 36.61404; O2SAT 97
[2024-04-24] MEDS: ACETAMINOPHEN 325MG TABLET PO PRN (10:31)
[2024-04-24 11:54] VITALS: BP 117/68; PULSE 88; TEMP 98.2; O2SAT 95
== END 2024-04-24 20:30 | disposition home or self-care (01) | DRG 812 ==
LOC: ER 06:51 → 5EST 11:56 → EDBEDREQTM 12:03 → EDBEDREQ 12:03 → 7WST 04-23 09:31
PROVIDERS: ADMIT Internal Medicine; ATTEND Internal Medicine
DX: T40.2X1A Poisoning by other opioids, accidental (unintentional), initial encounter (principal); J96.01 Acute respiratory failure with hypoxia; G92.8 Other toxic encephalopathy; J96.02 Acute respiratory failure with hypercapnia; F17.200 Nicotine dependence, unspecified, uncomplicated; F19.10 Other psychoactive substance abuse, uncomplicated; Z79.899 Other long term (current) drug therapy; Y92.89 Other specified places as the place of occurrence of the external cause
CPT/HCPCS: 36415; 36600; 71045; 80048; 80053; 80061; 80076; 80305; 80307; 80320; 80329; 81003; 82375; 82550; 82553; 82607; 82746; 82805; 82962; 83036; 83540; 83550; 83735; 83880; 84100; 84145; 84439; 84443; 84484; 84703; 85025; 93970; 99291; J1650; J1885; J1940; J2405; J7120; G0480